=== PATIENT | male | born 1950 | race Caucasian/White ===

== ENCOUNTER → 2018-05-20 | Outpatient (CLI) | payer MEDICARE, BC ==
[~2018-05-20] MED LIST: ASPIR 8181 MG PO; ATORVASTATIN CA20 MG PO; CLOPIDOGREL75 MG PO; DOXYCYCLINE HY100 MG PO; FUROSEMIDE40 MG PO; GABAPENTIN300 MG PO; IOPAMIDOL 370 MG/ML 200 ML INFUS..BTL INJ ONE; JENTADUETO 2.51 EAC2 PO; LASIX20 MG PO; LEVAQUIN500 MG PO; LISINOPRIL10 MG PO; LOPRESSOR25 MG PO; LOSARTAN POTASS25 MG PO; LOSARTAN POTASS50 MG PO; MELOXICAM7.5 MG PO; METOLAZONE5 MG PO; METOPROLOL SUCC50 MG PO; MINOCYCLINE HCL50 MG PO; PLAVIX75 MG PO; SODIUM CHLORIDE 0.9% 250ML 250 ML ONE; SODIUM CHLORIDE 0.9% 500ML 500 ML ONE; SODIUM CHLORIDE 0.9% 50ML 50 ML ONE; SPIRONOLACTONE25 MG PO; TYLENOL WITH C1 EACH PO; VICTOZA 2-0.6 MG/0.1 SC; VICTOZA 2-0.6 MG/0.1 SQ; ZOCOR20 MG PO
[2018-05-20 15:05] LABS: CREATININE, SERUM 1.26 mg/dL (0.72-1.25)
--- NOTE | 2018-05-21 10:55 | Diagnostic Imaging Report ---
CTA of the abdomen and pelvis, with contrast. History: AAA. Comparison: CTA of the chest, abdomen and pelvis dated 02/11/2017 Technique: Multidetector CT scanning of the abdomen and pelvis was performed from the level of the lung bases to the inferior pubic ramus, after intravenous administration of 100 cc of Isovue-370. No oral contrast was given. Scanning during the arterial phase was performed. Sagittal and coronal multiplanar reformations were obtained. DLP: 889.10 mGy-cm; Dose sparing technology was utilized. Discussion: Abdominal aorta and proximal branches: An infrarenal abdominal aortic aneurysm is present. The maximal diameter of the aneurysm measures 5.1 x 4.7 cm (AP by transverse). Similar previous measurement was 4.8 x 4.6 cm. The suprarenal abdominal aorta is within normal limits with representative government relations measurement as follows: 2.5 cm at the level of the diaphragmatic hiatus, 2.6 cm at the level of the celiac trunk, 2.5 cm the level of the SMA, and 2.2 cm at the level of the renal arteries. The celiac trunk and SMA are patent. There are single renal arteries bilaterally which patent. Aneurysm of the left common iliac artery measures 1.9 cm. The right common iliac artery measures 1.4 cm. The common femoral arteries measure 8.6 mm in size and are patent with mild calcification. Abdomen & Pelvis: The lung bases are clear. There is an upper anterior abdominal wall herniation of mediastinal fat appearing unchanged. The liver, biliary tree, spleen, pancreas, adrenal glands, and kidneys are normal. There is a single stone near the neck of the gallbladder. The hepatic vein, portal vein, and hepatic artery are patent. The stomach, small bowel and large bowel are unremarkable. The soft tissues are normal. There is no evidence of adenopathy or free fluid. Degenerative changes of the spine are present. Pelvis: The bladder is normal. Calcification within the prostate gland. There is no evidence of adenopathy or free fluid. IMPRESSION: 1. Fusiform infrarenal aneurysm has slightly enlarged compared to the previous study. 2. 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 3. Single stone within the gallbladder without evidence of inflammation or wall thickening. Signed by: Dr. Dong Rose DO on 05/21/2018 10:52 AM
== END ==
LOC: CT 14:13
PROVIDERS: ATTEND Internal Medicine Cardiovascular Disease
DX: I71.4 Abdominal aortic aneurysm, without rupture (principal)
CPT/HCPCS: 36415; 74174; 82565; 84520; 96360; J7040; J7050; Q9967

== ENCOUNTER → 2018-05-22 | Day surgery (SDC) | payer MEDICARE, BC ==
[2018-05-15 15:42] LABS: BASOPHILS # (AUTO) 0.1 (0.0-0.1); BASOPHILS % 0.9 % (0.0-1.0); HEMATOCRIT 43.5 % (38.2-49.6); HEMOGLOBIN 14.9 g/dL (14.0-18.0); LYMPHOCYTES # (AUTO) 2.6 (1.0-3.2); LYMPHOCYTES % 24.3 % (18.0-39.1); MEAN CORPUSCULAR HEMOGLOBIN 30.8 pg (28-32); MEAN CORPUSCULAR HGB CONC 34.3 g/dL (31-35); MEAN CORPUSCULAR VOLUME 89.9 fL (81-99); NEUTROPHILS % 65.3 % (38.7-80.0); PLATELET COUNT 263 x10e3/uL (140-360); RED BLOOD COUNT 4.84 x10e6/uL (4.3-5.7); RED CELL DISTRIBUTION WIDTH 12.8 % (11.7-14.4)
[~2018-05-22] MED LIST changes: +FENTANYL CITRATE/PF 100MCG/2 ML INJ ONE; +HYOSCYAMINE SULFATE 0.5 MG/ML INJ ONE; -IOPAMIDOL 370 MG/ML 200 ML INFUS..BTL INJ ONE; +MIDAZOLAM HCL 2 MG/2 ML VIAL ONE; +PROPOFOL IV EMULSION 10 MG/ML 50 ML VIAL ONE; -SODIUM CHLORIDE 0.9% 250ML 250 ML ONE; -SODIUM CHLORIDE 0.9% 500ML 500 ML ONE; -SODIUM CHLORIDE 0.9% 50ML 50 ML ONE
[2018-05-22 11:35] VITALS: BP 104/67
--- NOTE | 2018-05-22 13:47 | Operative Report ---
DATE OF PROCEDURE: May 22, 2018 REFERRING PHYSICIAN: Dr. Neetu Irwin PROCEDURE PERFORMED: Colonoscopy and polypectomy. INDICATIONS FOR COLONOSCOPY: Personal history of colon polyps and surveillance colonoscopy. MEDICATION: Patient was done under MAC. Please see anesthesiologist's note. PROCEDURE: With the patient in the left lateral decubitus position, the flexible fiberoptic Olympus colonoscope was inserted into the rectum with ease and advanced all the way to the cecum. The scope was then withdrawn slowly. Mucosa overlying the cecum and ascending colon appeared to be within normal limits. Three polyps were hot biopsied from the transverse colon. One polyp was hot biopsied from the descending colon. The sigmoid colon appeared to be within normal limits. Five polyps were hot biopsied from the rectum. The scope was then retroflexed into the distal rectum and small internal hemorrhoids were noted, none of which was actively bleeding. The scope was then straightened out. It was subsequently withdrawn. Patient tolerated the procedure well. IMPRESSION 1. Transverse colon polyps times 3, hot biopsied. 2. Descending colon polyp times 1, hot biopsied. 3. Rectal polyps times 5, hot biopsied. 4. Internal hemorrhoids, none actively bleeding. PLAN: Follow up histology. Initiate high-fiber and low-fat diet. Initiate high-fiber supplement. Patient might benefit from a followup colonoscopy in 2 to 3 years. Job#: [id number] RI cc:NEETU IRWIN MD
--- OUTSIDE RECORDS SUMMARY | 2018-05-23 11:10 | XMS REPORT ---
Author Author [facility] Address Unknown Phone Unavailable Care Team Providers Care Contact Worker Lithography Name Role Phone MAURISIO SINCLAIR Unavailable Unavailable DARÍO GOODMAN Unavailable Unavailable Problems This patient has no known problems. Allergies, Adverse Reactions, Alerts This patient has no known allergies or adverse reactions. Medications This patient has no known medications. Results Test Description Test Time Test Comments Text Results Atomic Results Result Comments CTA ABD/PELVIS 2018-05-21 10:13:00 [facility] [address] [place] [address] Patient Name: BARB BUENO MR #: [id number] : 1950 Age/Sex: 67/M Req #: [id number] Adm Physician: Ordered by: MAURISIO SINCLAIR MD Report #: [id number] Location: CT Room/Bed: Procedure: [id number] CT/CTA ABD/PELVIS Exam Date: 05/20/18 Exam Time: 1619 REPORT STATUS: Signed CTA of the abdomen and pelvis, with contrast. History: AAA. Comparison: CTA of the chest, abdomen and pelvis dated 02/11/2017 Technique: Multidetector CT scanning of the abdomen and pelvis was performed from the level of the lung bases to the inferior pubic ramus, after intravenous administration of 100 cc of Isovue-370. No oral contrast was given. Scanning during the arterial phase was performed. Sagittal and coronal multiplanar reformations were obtained. DLP: 889.10 mGy-cm; Dose sparing technology was utilized. Discussion: Abdominal aorta and proximal branches: An infrarenal abdominal aortic aneurysm is present. The maximal diameter of the aneurysm measures 5.1 x 4.7 cm (AP by transverse). Similar previous measurement was 4.8 x 4.6 cm. The suprarenal abdominal aorta is within normal limits with customer response representative measurement as follows: 2.5 cm at the level of the diaphragmatic hiatus, 2.6 cm at the level of the celiac trunk, 2.5 cm the level of the SMA, and 2.2 cm at the level of the renal arteries. The celiac trunk and SMA are patent. There are single renal arteries bilaterally which patent. Aneurysm of the left common iliac artery measures 1.9 cm. The right common iliac artery measures 1.4 cm. The common femoral arteries measure 8.6 mm in size and are patent with mild calcification. Abdomen Pelvis: The lung bases are clear. There is an upper anterior abdominal wall herniation of mediastinal fat appearing unchanged. The liver, biliary tree, spleen, pancreas, adrenal glands, and kidneys are normal. There is a single stone near the neck of the gallbladder. The hepatic vein, portal vein, and hepatic artery are patent. The stomach, small bowel and large bowel are unremarkable. The soft tissues are normal. There is no evidence of adenopathy or free fluid. Degenerative changes of the spine are present. Pelvis: The bladder is normal. Calcification within the prostate gland. There is no evidence of adenopathy or free fluid. IMPRESSION: 1. Fusiform infrarenal aneurysm has slightly enlarged compared to the previous study. 2. 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 3. Single stone within the gallbladder without evidence of inflammation or wall thickening. Signed by: Dr. Marie Rose DO on 05/21/2018 10:52 AM Dictated By: MARIE ROSE DO 1052 Transcribed By: CECILIA on 05/21/18 1052 COPY TO: MAURISIO SINCLAIR MD SMALL BOWEL SERIES [place] [address] Patient Name: BARB BUENO MR #: [id number] : 1950 Age/Sex: 66/M Req #: [id number] [facility] Physician: Ordered by: DARÍO GOODMAN MD Report #: [id number] Location: DX Room/Bed: Procedure: [id number] DX/SMALL BOWEL SERIES Exam Date: Exam Time: REPORT STATUS: Signed PROCEDURE: SMALL BOWEL SERIES FLUOROSCOPY TIME: 0.5 MINUTES AIr Kerma: 42.2 mGy Comparison: CTA chest abdomen pelvis 02/11/2017. Indications: POLPY IN ILEOCECAL VALVE Technique: Small bowel follow through exam was performed using oral barium. Preliminary image was obtained before administration of contrast and serial overhead images were obtained after administration of oral barium. Fluoroscopy was performed and spot images were obtained. Findings: SMALL BOWEL FOLLOW THROUGH: Small bowel loops are normal in caliber and distribution. Spot compression views of the terminal ileum are normal. A polypoid lesion at the ileocecal region was not identified. The transit time was normal. Right upper quadrant gallstone is again noted. IMPRESSION: Unremarkable fluoroscopic small bowel series. No ileocecal polypoid lesion is identified to correspond to the clinically reported abnormality. Correlation with endoscopy is suggested. Dictated by: Thuy Awan M.D. on 04/04/2017 at 13:33 Electronically approved by: Thuy Awan M.D. on 04/04/2017 at 13:33 Dictated By: THUY AWAN MD Transcribed By: LARISA on 04/04/17 1336 COPY TO: DARÍO GOODMAN MD CTA CHEST [place] [address] Patient Name: BARB BUENO MR #: [id number] : 1950 Age/Sex: 66/M Re #: [id number] [facility] Physician: Ordered by: MAURISIO SINCLAIR MD Report #: [id number] Location: CT Room/Bed: Procedure: [id number] CT/CTA CHEST Exam Date: 02/11/17 Exam Time: 1613 REPORT STATUS: Signed CT scan chest, abdomen and pelvis. February 11, 2017 Clinical history: Abdominal aortic aneurysm; lung nodule Technique: Arterial phase protocol CT chest, abdomen and pelvis after 100 mL Isovue-370 intravenous contrast. No enteric contrast was administered. Coronal, sagittal and axial images generated from source data. Volume and 3-D images of the arterial tree generated on an independent workstation under physician supervision. Dose: 1082.83 mGy-cm Comparison: July 05, 2015; February 21, 2015 Findings: Vascular: Aorta: Valvular plane: 2.4 cm Isthmus: 3.7 cm Sinotubular junction: 2.9 cm Ascendin.3 cm Proximal arch: 3.1 cm Distal arch: 2.5 cm Diaphragmatic hiatus: 2.5 cm Mid aorta: 2.5 cm Proximal infrarenal aorta: 1.9 cm Fusiform aneurysm in the infrarenal aortic segment measuring up to 4.3 cm in maximal diameter. The aneurysm is about 8 cm long. It originates about 4.5 cm from the origin of the left renal artery. Within the aneurysm sac is a small volume of thrombus or plaque with a 1 cm ulcer (image 60, series 406) along the right lateral wall. Right common iliac: 1.4 cm Left common iliac: 1.6 cm Great vessels: Bovine configuration without stenosis Celiac: Mild origin atherosclerosis. SMA: Mild origin atherosclerosis. MICHELLE: Patent, with an origin just above the level of the fusiform aneurysm. Renal arteries: Right: Single, with a superior pole branch originating 5 mm from the origin. Left: Single, with a left upper pole branch originating 6 mm from the origin. Mild rlt-[id number]-[id number] osteal calcification. Nonvascular findings: Lungs: 5 mm right lower lobe pulmonary nodule (image 31, series 5). Otherwise, clear. Pleura: Normal Airways: Normal Thoracic lymph nodes: Normal Pulmonary arteries: Normal caliber. Heart and pericardium: Postoperative sequela of CABG. Moderate calcification of the [place] vessels. Indwelling 2-lead pacemaker. Liver, pancreas, spleen: Normal cholelithiasis with an otherwise normal gallbladder. Adrenal glands, kidneys and urinary bladder: Normal Bowel: Normal caliber. Peritoneum: Normal Abdominal lymph nodes: Normal Skeleton: Intact. Mild degenerative disc disease. Soft tissues: Bilateral fat-containing inguinal hernias; 4 cm fat-containing subxiphoid hernia anterior abdominal wall hernia. Otherwise, normal Impression: 1. Fusiform infrarenal aortic aneurysm 8 cm in length with a maximal transverse diameter of 4.3 cm. This is unchanged in configuration relative to June 2015. ACR recommendation is for follow-up CT in one year. 2. 5 mm right lower lobe pulmonary nodule stable since 2014 in keeping with benign disease. No additional follow-up needed. 3. Cholelithiasis. This report was generated with voice-recog nition technology. Errors in global program director can occur. Please interpret accordingly and contact a radiologist if there are any questions regarding the report. Signed by: Dr. Dc Tate M.D. on 02/11/2017 5:56 PM Dictated By: DC TATE MD 55 Transcribed By: CECILIA on 02/11/171755 COPY TO: MAURISIO SINCLAIR MD CTA ABD/PELVIS [place] [address] Patient Name: BARB BUENO MR #: [id number] : 1950 Age/Sex: 66/M Req #: [id number] Adm Physician: Ordered by: MAURISIO SINCLAIR MD Report #: [id number] Location: CT Room/Bed: Procedure: [id number] CT/CTA ABD/PELVIS Exam Date: 02/11/17 Exam Time: 1613 REPORT STATUS: Signed CT scan chest, abdomen and pelvis. February 11, 2017 Clinical history: Abdominal aortic aneurysm; lung nodule Technique: Arterial phase protocol CT chest, abdomen and pelvis after 100 mL Isovue-370 intravenous contrast. No enteric contrast was administered. Coronal, sagittal and axial images generated from source data. Volume and 3-D images of the arterial tree generated on an independent workstation under physician supervision. Dose: 1082.83 mGy-cm Comparison: July 05, 2015; February 21, 2015 Findings: Vascular: Aorta: Valvular plane: 2.4 cm Isthmus: 3.7 cm Sinotubular junction: 2.9 cm Ascendin.3 cm Proximal arch: 3.1 cm Distal arch: 2.5 cm Diaphragmatic hiatus: 2.5 cm Mid aorta: 2.5 cm Proximal infrarenal aorta: 1.9 cm Fusiform aneurysm in the infrarenal aortic segment measuring up to 4.3 cm in maximal diameter. The aneurysm is about 8 cm long. It originates about 4.5 cm from the origin of the left renal artery. Within the aneurysm sac is a small volume of thrombus or plaque with a 1 cm ulcer (image 60, series 406) along the right lateral wall. Right common iliac: 1.4 cm Left common iliac: 1.6 cm Great vessels: Bovine configuration without st enosis Celiac: Mild origin atherosclerosis. SMA: Mild origin atherosclerosis. MICHELLE: Patent, with an origin just above the level of the fusiform aneurysm. Renal arteries: Right: Single, with a superior pole branch originating 5 mm from the origin. Left: Single, with a left upper pole branch originating 6 mm from the origin. Mild ppc-[id number]-xzjcqvgb osteal calcification. Nonvascular findings: Lungs: 5 mm right lower lobe pulmonary nodule (image 31, series 5). Otherwise, clear. Pleura: Normal Airways: Normal Thoracic lymph nodes: Normal Pulmonary arteries: Normal caliber. Heart and pericardium: Postoperative sequela of CABG. Moderate calcification of the [place] vessels. Indwelling 2-lead pacemaker. Liver, pancreas, spleen: Normal cholelithiasis with an otherwise normal gallbladder. Adrenal glands, kidneys and urinary bladder: Normal Bowel: Normal caliber. Peritoneum: Normal Abdominal lymph nodes: Normal Skeleton: Intact. Mild degenerative disc disease. Soft tissues: Bilateral fat-containing inguinal hernias; 4 cm fat-containing subxiphoid hernia anterior abdominal wall hernia. Otherwise, normal Impression: 1. Fusiform infrarenal aortic aneurysm 8 cm in length with a maximal transverse diameter of 4.3 cm. This is unchanged in configuration relative to June 2015. ACR recommendation is for follow-up CT in one year. 2. 5 mm right lower lobe pulmonary nodule stable since 2014 in keeping with benign disease. No additional follow-up needed. 3. Cholelithiasis. This report was generated with voice-re cognition technology. Errors in global program director can occur. Please interpret accordingly and contact a radiologist if there are any questions regarding the report. Signed by: Dr. Dc Tate M.D. on 02/11/2017 5:56 PM Dictated By: DC TATE MD 55 Transcribed By: CECILIA on 02/11/171755 COPY TO: MAURISIO SINCLAIR MD
== END | disposition home or self-care (01) ==
LOC: OR 11:07
PROVIDERS: ATTEND Internal Medicine Gastroenterology
DX: Z09 Encounter for follow-up examination after completed treatment for conditions other than malignant neoplasm (principal); D12.0 Benign neoplasm of cecum; D12.2 Benign neoplasm of ascending colon; D12.3 Benign neoplasm of transverse colon; D12.5 Benign neoplasm of sigmoid colon; K62.1 Rectal polyp; K64.8 Other hemorrhoids; I71.4 Abdominal aortic aneurysm, without rupture; I25.810 Atherosclerosis of coronary artery bypass graft(s) without angina pectoris; I25.2 Old myocardial infarction; E11.22 Type 2 diabetes mellitus with diabetic chronic kidney disease; I12.9 Hypertensive chronic kidney disease with stage 1 through stage 4 chronic kidney disease, or unspecified chronic kidney disease; N18.9 Chronic kidney disease, unspecified; E66.9 Obesity, unspecified; Z01.812 Encounter for preprocedural laboratory examination; Z79.02 Long term (current) use of antithrombotics/antiplatelets; Z79.82 Long term (current) use of aspirin; Z68.41 Body mass index [BMI] 40.0-44.9, adult; Z95.1 Presence of aortocoronary bypass graft; Z95.0 Presence of cardiac pacemaker; Z87.891 Personal history of nicotine dependence; Z95.5 Presence of coronary angioplasty implant and graft; Z80.0 Family history of malignant neoplasm of digestive organs
CPT/HCPCS: 36415 ×2; 45384; 82948; 85025; 88305; J1980; J2250; J2704; 45378

== ENCOUNTER → 2022-06-09 | Day surgery (SDC) | payer MEDICARE, BC ==
[2022-06-04 11:36] LABS: BASOPHILS # (AUTO) 0.1 (0.0-0.1); BASOPHILS % 0.7 % (0.0-1.0); HEMATOCRIT 46.2 % (38.2-49.6); HEMOGLOBIN 14.1 g/dL (14.0-18.0); LYMPHOCYTES # (AUTO) 1.8 (1.0-3.2); LYMPHOCYTES % 21.8 % (18.0-39.1); MEAN CORPUSCULAR HEMOGLOBIN 30.1 pg (28-32); MEAN CORPUSCULAR HGB CONC 30.5 g/dL (31-35); MEAN CORPUSCULAR VOLUME 98.5 fL (81-99); MONOCYTES # (AUTO) 0.7 (0.2-0.8); MONOCYTES % 8.2 % (4.4-11.3); NEUTROPHILS # (AUTO) 5.5 (2.1-6.9); NEUTROPHILS % 68.9 % (38.7-80.0); PLATELET COUNT 221 x10e3/uL (140-360); RED BLOOD COUNT 4.69 x10e6/uL (4.3-5.7); RED CELL DISTRIBUTION WIDTH 12.8 % (11.7-14.4)
[~2022-06-09] MED LIST changes: +GLIMEPIRIDE2 MG PO; +LIDOCAINE HCL 2% LOCAL INJ 5 ML SDV VIAL INJ ONE; +METFORMIN HCL500 MG PO; +PROPOFOL IV EMULSION 10 MG/ML 20 ML VIAL ONE; -PROPOFOL IV EMULSION 10 MG/ML 50 ML VIAL ONE; +VITAMIN D250 MCG
[2022-06-09 08:57] VITALS: BP 133/79
== END | disposition home or self-care (01) ==
LOC: OR 06:25
PROVIDERS: ATTEND Internal Medicine Gastroenterology
DX: Z09 Encounter for follow-up examination after completed treatment for conditions other than malignant neoplasm (principal); K63.5 Polyp of colon; K64.8 Other hemorrhoids; E11.22 Type 2 diabetes mellitus with diabetic chronic kidney disease; N18.9 Chronic kidney disease, unspecified; I25.810 Atherosclerosis of coronary artery bypass graft(s) without angina pectoris; I25.2 Old myocardial infarction; I45.10 Unspecified right bundle-branch block; E78.5 Hyperlipidemia, unspecified; Z01.810 Encounter for preprocedural cardiovascular examination; Z01.812 Encounter for preprocedural laboratory examination; Z79.02 Long term (current) use of antithrombotics/antiplatelets; Z79.82 Long term (current) use of aspirin; Z79.84 Long term (current) use of oral hypoglycemic drugs; Z79.899 Other long term (current) drug therapy; Z95.0 Presence of cardiac pacemaker; Z95.1 Presence of aortocoronary bypass graft; Z87.891 Personal history of nicotine dependence
CPT/HCPCS: 36415 ×2; 45380; 45384; 45385; 82948; 85025; 88305; 93005; J1980; J2001; J2250; J2704; J3010; 45378

== ENCOUNTER → 2023-03-05 | Day surgery (SDC) | payer MEDICARE, BC ==
[2023-03-01 10:22] LABS: BASOPHILS # (AUTO) 0.1 (0.0-0.1); BASOPHILS % 0.7 % (0.0-1.0); HEMATOCRIT 41.7 % (38.2-49.6); HEMOGLOBIN 13.9 g/dL (14.0-18.0); MEAN CORPUSCULAR HEMOGLOBIN 30.3 pg (28-32); MEAN CORPUSCULAR HGB CONC 33.3 g/dL (31-35); MONOCYTES # (AUTO) 0.6 (0.2-0.8); NEUTROPHILS # (AUTO) 5.3 (2.1-6.9); NEUTROPHILS % 65.9 % (38.7-80.0); PLATELET COUNT 192 x10e3/uL (140-360); RED BLOOD COUNT 4.58 x10e6/uL (4.3-5.7); RED CELL DISTRIBUTION WIDTH 13.2 % (11.7-14.4); WHITE BLOOD COUNT 8.04 x10e3/uL (4.8-10.8)
[2023-03-01 10:36] LABS: INR 1.02; PROTHROMBIN TIME 13.6 seconds (11.9-14.5)
[2023-03-05] VITALS (9 sets, daily range): BP systolic 117–151; BP diastolic 73–95; PULSE 65–70; RESP 8–17; TEMP 97.6; O2SAT 96–100
[~2023-03-05] VITALS: Ht 175.3 cm; Wt 113.4 kg
[~2023-03-05] MED LIST changes: +GENTAMICIN SULFATE 40 MG/ML 2 ML VIAL ONE; -HYOSCYAMINE SULFATE 0.5 MG/ML INJ ONE; +IOPAMIDOL 610MG/1ML 300 MG/ML VIAL IV ONE; +LIDOCAINE HCL 2% LOCAL 20 ML VIAL ONE; -LIDOCAINE HCL 2% LOCAL INJ 5 ML SDV VIAL INJ ONE; +OZEMPIC1 MG/0.71; -PROPOFOL IV EMULSION 10 MG/ML 20 ML VIAL ONE; +SODIUM CHLORIDE 0.9% 1000ML 2,000 ML ONE; +SODIUM CHLORIDE 0.9% 250ML 250 ML ONE; +SODIUM CHLORIDE 0.9% 500ML 500 ML ONE; +Vancomycin IV 1 GM VIAL ONE
== END | disposition home or self-care (01) ==
LOC: CATH LAB 06:39
PROVIDERS: ATTEND Internal Medicine Cardiovascular Disease
DX: Z45.010 Encounter for checking and testing of cardiac pacemaker pulse generator [battery] (principal); Z01.812 Encounter for preprocedural laboratory examination; Z79.02 Long term (current) use of antithrombotics/antiplatelets; Z79.82 Long term (current) use of aspirin; Z79.84 Long term (current) use of oral hypoglycemic drugs; Z79.85 Long-term (current) use of injectable non-insulin antidiabetic drugs; Z79.899 Other long term (current) drug therapy
CPT/HCPCS: 33229; 36415; 85025; 85610; C1763; C2621; J1580; J2001; J2250; J3010; J3370; J7030; J7040; J7050; 33264; 99152; 99153

== ENCOUNTER → 2024-03-13 | Outpatient (REF) | payer MEDICARE, BC ==
[~2024-03-13] MED LIST changes: +ACETAMINOPHEN/CODEINE 300MG - 30MG TAB ONE; -FENTANYL CITRATE/PF 100MCG/2 ML INJ ONE; -GENTAMICIN SULFATE 40 MG/ML 2 ML VIAL ONE; +IOPAMIDOL 200 MG/ML 20 ML VIAL IT ONE; +IOPAMIDOL 300 MG/ML 15ML VIAL IT ONE; -IOPAMIDOL 610MG/1ML 300 MG/ML VIAL IV ONE; +LIDOCAINE HCL 1% LOCAL INJ 20 ML VIAL ONE; -LIDOCAINE HCL 2% LOCAL 20 ML VIAL ONE; -MIDAZOLAM HCL 2 MG/2 ML VIAL ONE; -SODIUM CHLORIDE 0.9% 1000ML 2,000 ML ONE; -SODIUM CHLORIDE 0.9% 250ML 250 ML ONE; -SODIUM CHLORIDE 0.9% 500ML 500 ML ONE; -Vancomycin IV 1 GM VIAL ONE
[2024-03-13 11:00] LABS: BASOPHILS # (AUTO) 0.1 (0.0-0.1); EOSINOPHILS # (AUTO) 0.1 (0.0-0.4); EOSINOPHILS % 2.3 % (0.0-6.0); HEMATOCRIT 30.1 % (38.2-49.6); LYMPHOCYTES # (AUTO) 1.2 (1.0-3.2); LYMPHOCYTES % 23.5 % (18.0-39.1); MEAN CORPUSCULAR HEMOGLOBIN 30.6 pg (28-32); MEAN CORPUSCULAR HGB CONC 29.9 g/dL (31-35); MEAN CORPUSCULAR VOLUME 102.4 fL (81-99); MONOCYTES # (AUTO) 0.5 (0.2-0.8); MONOCYTES % 8.9 % (4.4-11.3); NEUTROPHILS # (AUTO) 3.3 (2.1-6.9); NEUTROPHILS % 64.1 % (38.7-80.0); PLATELET COUNT 131 x10e3/uL (140-360); RED BLOOD COUNT 2.94 x10e6/uL (4.3-5.7); RED CELL DISTRIBUTION WIDTH 12.7 % (11.7-14.4); WHITE BLOOD COUNT 5.15 x10e3/uL (4.8-10.8)
[2024-03-13 11:06] LABS: INR 1.07; PROTHROMBIN TIME 14.6 seconds (11.9-14.5)
[2024-03-13 11:07] LABS: PARTIAL THROMBOPLASTIN TIME 26.6 seconds (23.8-35.5)
== END ==
LOC: CT 10:05
PROVIDERS: ATTEND Family Medicine
DX: M54.15 Radiculopathy, thoracolumbar region (principal)
CPT/HCPCS: 36415; 62304; 72132; 85025; 85610; 85730; J2003; Q9967 ×2